=== PATIENT | female | born 1940 | race Caucasian/White ===

== ENCOUNTER 2024-03-22 14:17 | Outpatient (RCR) | payer MEDICARE, OTHER, SELFPAY ==
--- NOTE | 2024-03-22 15:28 | PT.OPEX ---
PT [place] Outpatient Eval PT [facility] Outpatient Eval Start: 03/22/24 11:19 Freq: Status: Active Protocol: Document 03/22/24 14:35 HLA (Rec: 03/22/24 15:22 HLA [id number]) E-signed By Dahiana Gonzalez, PT, DPT Physical Therapy Outpatient Evaluation Insurance Information Insurance Name [employer] Medical Diagnosis R TKA Treating Diagnosis weakness, pain R knee Referring MD Bateman Subjective Preferred Name Erin Subjective Pain R knee, manageable but difficulty on hills outdoors and stairs has to do step to pattern. Finds it does give her pain if walking any distances. She is ind in ADLS, amb no device. 2 step entry rambler, basement shower with railing. Toilet main floor. Spouse is able to help her at home. Date of Last Physician Visit 03/14/24 Current Work Status Retired Precautions Weight Bearing Status Weight Bear as Tolerated Therapy Limitations/Systems Review Not Limited Objective Range of Motion 0-110 degrees R knee flex, otherwise WNL UES/LES Strength strength WNL UEs/LES Swelling none Palpation tender medial joint line R knee Balance & Gait Amb Sensation/Reflexes intact Assessment Assessment/Impression Pt is an 83 year old female undergoing her first joint replacement, R TKA with Dr. Bateman on 04/10/24. She plans to attend rehab in [place] at [facility]. At baseline, pt lives in 1 level home, basement shower and laundry. 2 step entry with railing. She is ind in ADLs, drives. Her spouse is able to assist her at home and to appts after surgery. Pt has good strength of UEs/LEs, ROM R knee 0-110 degrees flexion, pain with amb long distances and stairs. She was instructed today in bed mob, positioning, basic transfers, gt with walker level surfaces and stairs, TKA ex program and progression of activity to OP PT, car transfers, safety, fall prevention and activity level post surgery. She has a ww and cane for home use. PT goals were met with pt transitioning to OP PT in [place]. Primary Functional Limitations pain long distance amb, hills and stairs Plan of Care Rehabilitation Potential Excellent Rehabilitation Potential Comments 1. Within this session: Pt will verbalize and demonstrate understanding of pre-op/post- op safety, mobility and exercises with home program issued and pt advancing to outpatient after TKA replacement. Coordination/Communication With Referral Source Treatment Plan/Direct Interventions Electrical Stimulation, Therapeutic Activities, Therapeutic Exercises Patient Will Be Discharged From Therapy Completion of LTG(s), Independent w/HEP, Independently Progressing Evaluation Billing Untimed Code Treatment Minutes 11 PT Eval No Charge No Complexity Low Certification Information Initial Certification Date 03/22/24 Ending Certification Date 06/19/24 Provider Signature Required Communication Only-No Signature Required
== END 2024-03-22 15:53 | disposition home or self-care (01) ==
PROVIDERS: PCP Internal Medicine; Visit Provider Orthopaedic Surgery Sports Medicine
DX: M17.11 Unilateral primary osteoarthritis, right knee (principal); Z96.651 Presence of right artificial knee joint; M25.561 Pain in right knee; R53.1 Weakness; Z51.89 Encounter for other specified aftercare
CPT/HCPCS: 97110; 97161; 97530

== ENCOUNTER 2024-04-10 06:50 | Day surgery (SDC) | payer MEDICARE, OTHER, SELFPAY ==
[2024-04-10] VITALS (23 sets, daily range): BP systolic 79–152; BP diastolic 43–87; PULSE 68–80; RESP 14–18; TEMP 36.3–37.1; O2SAT 92–99; BMI 30.4
[2024-04-10] MEDS: LACTATED RINGERS 1000 ML 1,000 ML 100 ML IV (07:00)
[2024-04-10] MEDS: OXYCODONE (CR) 10 MG TAB.ER.12H PO (08:55)
[2024-04-10] MEDS: ACETAMINOPHEN 500 MG TABLET 1000 MG PO (08:55)
[2024-04-10] MEDS: fentaNYL 100 MCG/2 ML inj IVP (09:00)
[2024-04-10] MEDS: MIDAZOLAM HCL 1 MG/ML inj IVP (09:00)
--- NOTE | 2024-04-10 09:03 | SUR.PREOP ---
TIME?OUT:?0854 PT/RN/MDA?VERIFICATION?OF?SURGICAL?SITE,?PROCEDURE,?AND?CONSENT OBTAINED?PRIOR?TO?INVASIVE?PROCEDURE.
[2024-04-10] MEDS: CEFAZOLIN 2 GM in 0.9 % SODIUM CHLORIDE Mini-bag 100 ML IVPB (09:15)
[2024-04-10] MEDS: TRANEXAMIC ACID 100 MG/ML INJ 1000 MG IV (09:20)
--- NOTE | 2024-04-10 10:39 | CRLHL7_ITS ---
For Patients: As a result of the Cures Act, medical imaging exams and procedure reports are released immediately into your electronic medical record. You may view this report before your referring provider. If you have questions, please contact your health care provider. Indication: Postop Technique: Two views right knee Findings/Impression: Hardware from a right total knee arthroplasty is in satisfactory position. Bone alignment is normal. No sign of acute fracture. Postop changes are within normal limits. Dictated by Chase Barreto MD @ 04/10/2024 12:19:01 PM (Electronically Signed)
--- NOTE | 2024-04-10 10:41 | P.ORPRC_ITS ---
Procedure Note Date of procedure: 04/10/24 Procedure: PREOPERATIVE DIAGNOSIS: 1. Right knee osteoarthritis, primary, severe POSTOPERATIVE DIAGNOSIS: 1. Right knee osteoarthritis, primary, severe PROCEDURE: 1. Right total knee arthroplasty - subvastus SURGEON: Eduar Bateman MD. PSYCHOMETRIC EXAMINER: Timothy Rodriguez PA-C - Of note, a skilled hospital medical assistant was critical for this case to aid in patient positioning, tissue retraction, limb manipulation/positioning, and closure. ANESTHESIA: Spinal anesthetic IMPLANTS: DePuy J&J all cemented TKA - Attune PS femur size 3 regular, size 2 tibia, 5 mm poly spacer, 35 mm patella TOURNIQUET: 80 minutes at 250 torr EBL: 50 ml COMPLICATIONS: None evident INDICATIONS: The patient is a pleasant 83-year-old male female who has experienced severe right knee pain and difficulty bearing weight. Workup included x-rays which revealed severe osteoarthrosis in the knee. Given the deformity, the dysfunction, and the pain, as well as the failure of nonoperative management, recommendation was made for surgery. FINDINGS: Full-thickness chondral loss diffusely throughout the medial compartment. To lesser degree lateral and patellofemoral compartments. Degenerative meniscus pathology. Small effusion upon entering the joint. Large osteophytes around the femur and tibia, especially medially. DESCRIPTION OF PROCEDURE: Following a thorough discussion of risks, benefits, and alternatives consent was obtained and the right knee was marked. The patient was brought to the operating room and placed supine on the operating table. Induction of anesthesia was undertaken. 1 g IV Ancef and 1 g tranexamic acid was administered within 1 hr of incision preoperatively. Proper time-out was performed identifying proper patient, site, procedure. The operative extremity was prepped and draped in the appropriate sterile fashion using ChloraPrep after the patient was positioned supine with all bony prominences well padded. A longitudinal, anterior, midline skin incision was made starting approximately 3cm proximal to the superior pole of the patella and advanced distal to the tibial tubercle. A subvastus approach was utilized. A medial subperiosteal sleeve was created with knife, segovia elevator and curved osteotome. The retropatellar fatpad was resected and the synovium in the suprapatellar pouch excised to visualize the anterior femoral cortex. Femoral preparation was performed via an intramedullary guide. Step drill allowed access into the femoral canal. The distal cutting guide was placed with 5? of valgus and 10 mm cut on the distal femur. Femur was sized using a anterior referencing guide in 3? of external rotation. This found have a best fit with the sizing noted above. The 4 in 1 cutting block was then placed, and the distal femur shaped accordingly. The box cut was then created and the trial implant inserted to confirm appropriate fit. We turned our attention to the proximal tibia. Extramedullary guide was utilized for cutting with the goal of being 90 degree cut from the mechanical axis of the tibia in the varus/valgus plane utilizing tibial crest as the primary alignment. Initially a 2 mm resection was performed from the medial tibial plateau. Ultimately, balancing was achieved in both flexion and extension in both varus and valgus. The knee was able to achieve full extension as well comfortably. The patella was initially measured and found have a thickness of 20 mm. It was resected back to approximately 13.5 mm. It was sized to be a best fit with as noted above. This was drilled, trial placed. All trials were placed and found to have an excellent stability and balance. At this stage, trial implants were removed, the knee was thoroughly irrigated with normal saline, and the cement was mixed. After irrigation, the knee was thoroughly dried, and cement placed, with the real tibial and femoral implants placed along with the patella. Trial poly spacer was placed and confirmed to have excellent range of motion and full extension, and the real poly spacer opened and inserted. All extra cement was removed, and a 3 min Betadine soak performed. Finally, a final irrigation round with normal saline was performed. Closure performed with 0 Vicryl and #0 Stratafix for the quad tendon/retinaculum. 2-0 Vicryl for the subcutaneous and 4-0 Stratafix for subcuticular closure. Dressings were applied and the patient was awoken from anesthesia after the tourniquet deflated and transferred the PACU in stable condition. A skilled hospital medical assistant was critical for this case to aid in patient positioning, tissue retraction, bone exposure, limb manipulation/positioning, patient safety, and closure. PLAN: 1. Weight bear as tolerated operative extremity. 2. 23 hr perioperative antibiotics. 3. Ice. 4. PT/OT consults for ambulation assistance/mobility education. 5. Social work consult for discharge planning. 6. DVT prophylaxis with at SCDs and aspirin twice daily.
--- NOTE | 2024-04-10 10:41 | W.PM.H&PU ---
History & Physical Update History & Physical Update H&P Reviewed and patient assessed: No changes noted
--- NOTE | 2024-04-10 11:18 | P.NB_ITS ---
Nerve Block Nerve Block Time Seen by Provider: 08:55 Date Seen: 04/10/24 Type of block requested by surgeon for post-operative analgesia: adductor canal Side: right Time out performed: Yes Verification of patient name: Yes Verification of date of : Yes Site marking: site marked Name of person performing procedure: Rajesh Continuous monitoring Was continuous monitoring of O2 sat, B/P, banquet waiter/waitress, recorded every 15 minutes?: Yes Procedure Checklist: sterile prep, needles and gloves Ultrasound guided. Images saved: Yes Medications given in 5ml increments after negative aspiration: Marcaine %: 0.25 mL: 15 Needle gauge: 20 Precedex (mcg): 25 Patient tolerated procedure well: Yes Block Charges Block Charge (with Pro Fee): Femoral Nerve Use of Ultrasound Machine for Block: Yes- US Guidance/pain block
--- NOTE | 2024-04-10 11:18 | W.ANESCHARGE ---
Anesthesia Charges Start Date/Time Anesthesia Start Date: 04/10/24 Anesthesia Start Time: 09:05 Stop Date/Time Anesthesia Stop Date: 04/10/24 Anesthesia Stop Time: 11:36 Summary Extremes of Age - Over 70 or under 1: MDA
--- NOTE | 2024-04-10 11:19 | P.NB_ITS ---
Nerve Block Nerve Block Time Seen by Provider: 08:55 Date Seen: 04/10/24 Type of block requested by surgeon for post-operative analgesia: geniculars Side: right Time out performed: Yes Verification of patient name: Yes Verification of date of : Yes Site marking: site marked Name of person performing procedure: Rajesh Continuous monitoring Was continuous monitoring of O2 sat, B/P, telemetry monitor, recorded every 15 minutes?: Yes Procedure Checklist: sterile prep, needles and gloves Ultrasound guided. Images saved: Yes Medications given in 5ml increments after negative aspiration: Marcaine %: 0.25 mL: 9 Needle gauge: 25 Patient tolerated procedure well: Yes Block Charges Block Charge (with Pro Fee): Genicular Nerve Block
--- NOTE | 2024-04-10 11:39 | W.ANESCHARGE ---
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
[2024-04-10] MEDS: 0.9 % SODIUM CHLORIDE 500 ML 500 ML IV (14:27)
--- NOTE | 2024-04-10 14:35 | SUR.PHASEII ---
Addressed low blood pressures with Anesthesia, order for 500mL of Normal Saline placed.
== END 2024-04-10 16:07 | disposition home or self-care (01) ==
LOC: OR 06:52
PROVIDERS: PCP Internal Medicine; Visit Provider Orthopaedic Surgery Sports Medicine
PROC: (CPT 27447; principal; 2024-04-10 09:15)
DX: M17.11 Unilateral primary osteoarthritis, right knee (principal); G89.18 Other acute postprocedural pain
CPT/HCPCS: 27447; 01402; 64447; 64454; 73560; 76942; 97110; 97116; 97162; 99100; A9270; C1776; J0665; J0690; J2250; J2405; J2704; J3010; J7030; J7120